=== PATIENT | male | born 1980 | race Caucasian/White ===

== ENCOUNTER 2021-11-14 00:51 | Emergency (ER) | payer OTHER ==
[~2021-11-14] VITALS: Ht 185.4 cm; Wt 131.5 kg
[2021-11-14] MEDS ORDERED: PROTONIX 20 MG20 MG PO (01:03)
[2021-11-14] MEDS ORDERED: BLOOD PRESSURE MED (01:04)
[2021-11-14] MEDS ORDERED: VENTOLIN HFA 1818 GM INH (02:22)
[2021-11-14] MEDS ORDERED: MEDROLDOSEPACK PO (02:22)
[2021-11-14 02:23] VITALS: BP 138/79
== END 2021-11-14 02:23 | disposition home or self-care (01) ==
LOC: M.ERS 00:51
DX: U07.1 COVID-19 (principal); R06.02 Shortness of breath; Z79.899 Other long term (current) drug therapy

== ENCOUNTER 2021-12-06 17:44 | Emergency (ER) | payer OTHER ==
[~2021-12-06] VITALS: Ht 185.4 cm; Wt 131.5 kg
[~2021-12-06 17:44] MED LIST: ALBUTEROL2.5 MG/31 INH; AUGMENTIN 875-1 EACH PO; BLOOD PRESSURE MED; LISINOPRIL20 MG PO; MEDROLDOSEPACK PO; NEBULIZER MISCELL; PREDNISONE50 MG PO; PROTONIX 20 MG20 MG PO; PROTONIX40 M2 PO; VENTOLIN HFA 1818 GM INH
[2021-12-06] MEDS ORDERED: PREDNISONE 20 M20 M1 PO (21:47)
[2021-12-06] MEDS ORDERED: ALBUTEROL2.5 MG/31 INH (21:47)
[2021-12-06] MEDS ORDERED: PULMICORT0.5 MG/22 INH (22:28)
[2021-12-06 22:34] VITALS: BP 111/70
== END 2021-12-06 22:35 | disposition home or self-care (01) ==
LOC: M.ERS 17:44
DX: J20.9 Acute bronchitis, unspecified (principal); K21.9 Gastro-esophageal reflux disease without esophagitis; I10 Essential (primary) hypertension; J45.909 Unspecified asthma, uncomplicated; Z79.899 Other long term (current) drug therapy

== ENCOUNTER 2021-12-16 17:22 | Emergency (ER) | payer OTHER ==
[~2021-12-16] VITALS: Ht 185.4 cm; Wt 129.3 kg
[~2021-12-16 17:22] MED LIST changes: +PREDNISONE 20 M20 M1 PO; +PULMICORT0.5 MG/22 INH
[2021-12-16] MEDS ORDERED: PREDNISONE 20 M20 M1 PO (18:29)
[2021-12-16] MEDS ORDERED: HYDROXYZINE HCL25 M2 PO (18:29)
[2021-12-16] MEDS ORDERED: FAMOTIDINE 20 M20 MG PO (18:29)
[2021-12-16 18:51] VITALS: BP 144/88
== END 2021-12-16 18:52 | disposition home or self-care (01) ==
LOC: M.ERS 17:22
DX: T78.1XXA Other adverse food reactions, not elsewhere classified, initial encounter (principal); L50.9 Urticaria, unspecified; K21.9 Gastro-esophageal reflux disease without esophagitis; I10 Essential (primary) hypertension; J45.909 Unspecified asthma, uncomplicated; Z79.899 Other long term (current) drug therapy; X58.XXXA Exposure to other specified factors, initial encounter